=== PATIENT | female | born 1960 | race Caucasian/White ===

== ENCOUNTER 2020-12-07 10:55 | Observation (INO) | payer BC ==
[~2020-12-07] VITALS: Ht 154.9 cm; Wt 88.0 kg
[2020-12-07 11:59] LABS: HEMOGLOBIN 11.1 gm/dl (12.3-15.3); RED BLOOD COUNT 3.65 M/UL (4.00-5.10); WHITE BLOOD COUNT 5.2 K/UL (4.5-11.0)
[2020-12-07 12:22] LABS: BUN/CREATININE RATIO 27 (0-10)
[2020-12-07] MEDS ORDERED: PROAIR HFA8.5 GM INH (16:49)
[2020-12-07] MEDS ORDERED: COZAAR50 MG PO (16:49)
[2020-12-07] MEDS ORDERED: PRALUENT SQ (16:52)
[2020-12-07] MEDS ORDERED: PLAVIX 75 MG TA75 MG PO (16:53)
[2020-12-07] MEDS ORDERED: ASPIRIN81 MG PO (16:53)
[2020-12-07] MEDS ORDERED: CLONAZEPAM1 MG PO (16:53)
[2020-12-07] MEDS ORDERED: HYDROCODON-ACE1 EAC6 PO (16:54)
[2020-12-07] MEDS ORDERED: GABAPENTIN800 MG PO (16:54)
[2020-12-07] MEDS ORDERED: METFORMIN HCL500 M2 PO (16:55)
[2020-12-07] MEDS ORDERED: VICTOZA 1818 MG/3 ML SC (16:55)
[2020-12-07] MEDS ORDERED: LEVOTHYROXINE50 MCG PO (16:56)
[2020-12-07] MEDS ORDERED: CARVEDILOL12.5 MG PO (16:56)
[2020-12-07] MEDS ORDERED: CRESTOR20 MG PO (16:57)
[2020-12-07] MEDS ORDERED: TYLENOL EXTRA500 MG PO (16:57)
[2020-12-07] MEDS ORDERED: BASAGLAR K100 UNIT/1 SC (16:57)
[2020-12-07] MEDS ORDERED: CITALOPRAM HBR10 MG PO (16:57)
--- NOTE | 2020-12-08 01:39 | NUR ---
2200 PT STATED SHE IS ALLERGIC TO LIPITOR STATES CAUSED HIVES TAKES CRESTOR. PROVIDER AND PHARMACY NOTIFIED. PT WAS NOT ADMINISTERED LIPITOR.
[2020-12-08 07:11] LABS: HEMOGLOBIN 11.3 gm/dl (12.3-15.3); RED BLOOD COUNT 3.77 M/UL (4.00-5.10); WHITE BLOOD COUNT 5.8 K/UL (4.5-11.0)
[2020-12-09 06:02] LABS: HEMOGLOBIN 11.2 gm/dl (12.3-15.3); RED BLOOD COUNT 3.71 M/UL (4.00-5.10); WHITE BLOOD COUNT 6.2 K/UL (4.5-11.0)
[2020-12-09] MEDS ORDERED: CRESTOR20 MG PO (10:14)
[2020-12-09] MEDS ORDERED: CLARITIN10 M2 PO (10:21)
[2020-12-09] MEDS ORDERED: HYDRALAZINE HCL25 MG PO (10:21)
[2020-12-09] MEDS ORDERED: LEVOTHYROXINE50 MCG PO (11:38)
== END 2020-12-09 16:27 | disposition home or self-care (01) ==
LOC: ER1 10:55 → CDU 15:05 → MED SURG 4 21:06
PROVIDERS: Physician Assistant; Student in an Organized Health Care Education/Training Program; ADMIT Internal Medicine
DX: G45.9 Transient cerebral ischemic attack, unspecified (principal); N17.9 Acute kidney failure, unspecified; I12.9 Hypertensive chronic kidney disease with stage 1 through stage 4 chronic kidney disease, or unspecified chronic kidney disease; E11.22 Type 2 diabetes mellitus with diabetic chronic kidney disease; N18.9 Chronic kidney disease, unspecified; E78.5 Hyperlipidemia, unspecified; E03.9 Hypothyroidism, unspecified; Z20.822 Contact with and (suspected) exposure to COVID-19; Z79.02 Long term (current) use of antithrombotics/antiplatelets; Z79.82 Long term (current) use of aspirin; Z79.4 Long term (current) use of insulin; Z79.84 Long term (current) use of oral hypoglycemic drugs; Z79.899 Other long term (current) drug therapy; Z86.73 Personal history of transient ischemic attack (TIA), and cerebral infarction without residual deficits; Z88.8 Allergy status to other drugs, medicaments and biological substances
CPT/HCPCS: ECHO; 36415; 70450; 70544; 70551; 71045; 80048; 80053; 81001; 82550; 82553; 82565; 82962; 83874; 84439; 84443; 84484; 85025; 85027; 87086; 92610; 93306; 93880; 97161; 97165; 99285; G0378; J1650; J7030; U0002